=== PATIENT | male | born 1975 | race Caucasian/White ===

== ENCOUNTER 2017-02-15 01:45 | Inpatient (IN) | payer BC ==
[~2017-02-15] VITALS: Ht 167.6 cm; Wt 90.0 kg
[2017-02-15] MEDS ORDERED: OMEP-110 PO (01:55)
[2017-02-15] MEDS ORDERED: SERT25TA3 PO (01:55)
[2017-02-15] MEDS ORDERED: ALPR-475 PO (01:55)
[2017-02-15] MEDS ORDERED: LOSA25TA5 PO (01:55)
[2017-02-15] MEDS ORDERED: LORazepam 2 MG/ML, 1ML ONE (01:59)
[2017-02-15] MEDS ORDERED: HYDROmorphone 1 MG/ML, 1ML ONE (01:59)
[2017-02-15] MEDS ORDERED: LORazepam 2 MG/ML, 1ML IVPush ONE (02:00)
[2017-02-15] MEDS ORDERED: SODIUM CHLORIDE 0.9% 1,000ML IVBOLUS ONE (02:00)
[2017-02-15] MEDS ORDERED: SODIUM CHLORIDE FLUSH 10ML SYR IVF ONE (02:00)
[2017-02-15] MEDS ORDERED: MORPHINE SULFATE 4 MG/ML, 1ML IVPush PRN (02:00)
[2017-02-15] MEDS ORDERED: NITROGLYCERIN SINGLE TAB 0.4 MG SL ONE (02:02)
[2017-02-15] MEDS ORDERED: HEPARIN 1,000 UNITS/ML, 10ML ONE (02:07)
[2017-02-15] MEDS ORDERED: BIVALIRUDIN 250 MG ONE ×2 (02:07→03:07)
[2017-02-15] MEDS ORDERED: NITROGLYCERIN 5 MG/ML, 10ML ONE (02:07)
[2017-02-15] MEDS ORDERED: LIDOCAINE 2%, 20ML ONE ×2 (02:07→02:24)
[2017-02-15] MEDS ORDERED: FENTANYL PF 100 MCG/2ML ONE ×2 (02:07→02:37)
[2017-02-15] MEDS ORDERED: MIDAZOLAM 1 MG/ML, 5ML ONE ×2 (02:07→02:37)
[2017-02-15] MEDS ORDERED: TICAGRELOR 90 MG TABLET ONE (02:07)
[2017-02-15] MEDS ORDERED: VERAPAMIL 2.5 MG/ML, 2ML ONE (02:07)
[2017-02-15 02:20] LABS: HEMATOCRIT 53.4 % (39.2-51.8); HEMOGLOBIN 18.4 g/dL (13.7-18.0); WHITE BLOOD COUNT 13.4 x10^3/uL (3.4-10)
[2017-02-15] MEDS ORDERED: ONDANSETRON 2MG/ML, 2ML IVPush ONE (02:30)
[2017-02-15] MEDS ORDERED: HYDROmorphone 1 MG/ML, 1ML IVPush PRN (02:30)
[2017-02-15] MEDS ORDERED: NITROGLYCERIN SINGLE TAB 0.4 MG SL PRN (02:30)
[2017-02-15 02:33] LABS: BLOOD UREA NITROGEN 19 mg/dL (7-18)
[2017-02-15] MEDS ORDERED: DIPHENHYDRAMINE 50 MG/ML, 1ML ONE (02:33)
[2017-02-15 02:38] LABS: IS PT STATUS REG ER OR PRE ER? YES
[2017-02-15 02:40] LABS: ASPARTATE AMINO TRANSFERASE 1273 U/L (15-37)
[2017-02-15] MEDS ORDERED: EPTIFIBATIDE 20 MG/10 ML ONE (03:18)
[2017-02-15] MEDS ORDERED: EPTIFIBATIDE 0 ML IV ONE (03:18)
[2017-02-15] MEDS ORDERED: LABETALOL 5MG/ML, 20ML ONE (03:24)
[2017-02-15] MEDS ORDERED: ZOLPIDEM 5MG TABLET PO PRN (03:30)
[2017-02-15] MEDS: morphine SULFATE 10 MG/ML, 1ML IV PRN ×2 (04:11→17:58)
[2017-02-15] MEDS: ENOXAPARIN 80 MG/0.8 ML SQ SCH ×2 (04:12→16:02)
[2017-02-15] MEDS: METOPROLOL TARTRATE 25 MG TABLET PO SCH ×3 (04:12→19:27)
[2017-02-15] MEDS: SODIUM CHLORIDE 0.9% 1,000 ML IV SCH ×3 (04:13→19:29)
[2017-02-15 04:26] VITALS: BP 136/108
[2017-02-15] MEDS: ACETAMINOPHEN 500 MG TABLET PO PRN (05:24)
[2017-02-15] MEDS ORDERED: ONDANSETRON 2MG/ML, 2ML IVPush PRN (05:30)
[2017-02-15] MEDS: BIVALIRUDIN 250 MG in DEXTROSE 5% 50 ML IV SCH ×2 (05:41→06:01)
[2017-02-15 06:32] LABS: DAU SCREEN DISCLAIMER
[2017-02-15] MEDS ORDERED: METOPROLOL 1 MG/ML, 5ML IVPush ONE (07:00)
[2017-02-15] MEDS: TICAGRELOR 90 MG TABLET PO SCH ×2 (07:37→19:27)
[2017-02-15] MEDS: ASPIRIN 81 MG TABLET EC PO SCH (07:37)
[2017-02-15] MEDS: SERTRALINE 50MG TABLET PO SCH (07:37)
[2017-02-15] MEDS: LOSARTAN 50MG TABLET PO SCH ×2 (07:37→19:27)
[2017-02-15] MEDS ORDERED: POTASSIUM CHLORIDE 20 MEQ TAB.ER.PRT PO ONE ×2 (09:00→17:00)
[2017-02-15] MEDS ORDERED: CHLORDIAZEPOXIDE 25 MG CAPSULE PO SCH (09:30)
[2017-02-15] MEDS: LORazepam 2 MG/ML, 1ML IVPush PRN ×5 (09:49→21:51)
[2017-02-15] MEDS: THIAMINE 100 MG in SODIUM CHLORIDE 0.9% 50 ML IV SCH (09:58)
[2017-02-15] MEDS: MULTIVITAMIN 1 TABLET PO SCH (09:58)
[2017-02-15] MEDS ORDERED: FUROSEMIDE 20 MG/2 ML IV ONE (11:00)
[2017-02-15] MEDS: NITROGLYCERIN SINGLE TAB 0.4 MG SL PRN ×2 (12:26→12:43)
[2017-02-15] MEDS: NITROGLYCERIN OINT 2%, 1GM TP SCH ×2 (13:14→19:28)
[2017-02-15 13:29] LABS: IS PT STATUS REG ER OR PRE ER? NO
[2017-02-15] MEDS ORDERED: NICOTINE 21 MG/24 HR PATCH.TD24 ONE (15:57)
[2017-02-15] MEDS: CHLORDIAZEPOXIDE 25 MG CAPSULE PO SCH ×2 (15:59→19:27)
[2017-02-15] MEDS ORDERED: DIAZEPAM 5 MG/ML, 2ML IV SCH (18:00)
[2017-02-15 18:57] LABS: IS PT STATUS REG ER OR PRE ER? NO
[2017-02-15] MEDS: ATORVASTATIN 80 MG TABLET PO SCH (19:29)
[2017-02-15] MEDS: DIAZEPAM 5 MG/ML, 10ML VIAL IV SCH ×2 (19:30→23:00)
[2017-02-15] MEDS ORDERED: CHLORDIAZEPOXIDE 10 MG CAPSULE PO PRN (22:30)
[2017-02-15] MEDS ORDERED: LORazepam 2 MG/ML, 1ML IV PRN ×2 (22:30)
[2017-02-15] MEDS ORDERED: CHLORDIAZEPOXIDE 25 MG CAPSULE PO PRN ×3 (22:30)
[2017-02-15] MEDS: LORazepam 2 MG/ML, 1ML IV PRN ×3 (22:34→23:54)
[2017-02-15] MEDS: FOLIC ACID 1 MG TABLET PO SCH (23:06)
[2017-02-15] MEDS: POTASSIUM CHLORIDE 20 MEQ, MAGNESIUM SULFATE 2 GM, THIAMINE 100 MG, MVI ADULT 10 ML in ... IV SCH (23:07)
[2017-02-16] MEDS: LORazepam 2 MG/ML, 1ML IV PRN ×3 (00:53→02:10)
[2017-02-16 01:06] LABS: IS PT STATUS REG ER OR PRE ER? NO
[2017-02-16] MEDS: NITROGLYCERIN OINT 2%, 1GM TP SCH ×4 (01:29→19:21)
[2017-02-16] MEDS ORDERED: HALOPERIDOL 5 MG/ML ONE (02:37)
[2017-02-16] MEDS ORDERED: HALOPERIDOL 5 MG/ML IV ONE ×2 (03:00→03:30)
[2017-02-16] MEDS: DIAZEPAM 5 MG/ML, 10ML VIAL IV SCH ×2 (03:00→07:00)
[2017-02-16] MEDS: METOPROLOL TARTRATE 25 MG TABLET PO SCH (03:13)
[2017-02-16] MEDS: ENOXAPARIN 80 MG/0.8 ML SQ SCH ×2 (03:14→15:54)
[2017-02-16 03:19] VITALS: BP 126/88
[2017-02-16] MEDS: SODIUM CHLORIDE 0.9% 1,000 ML IV SCH ×3 (03:29→19:31)
[2017-02-16] MEDS ORDERED: DEXMEDETOMIDINE 200 MCG in SODIUM CHLORIDE 0.9% 48 ML IV PRN (05:00)
[2017-02-16 06:10] LABS: WHITE BLOOD COUNT 19.2 x10^3/uL (3.4-10)
[2017-02-16 06:34] LABS: BLOOD UREA NITROGEN 17 mg/dL (7-18)
[2017-02-16 06:37] LABS: ASPARTATE AMINO TRANSFERASE 823 U/L (15-37)
[2017-02-16 06:50] LABS: DIFF TOTAL CELLS COUNTED 100 CELL DIFF
[2017-02-16 06:51] LABS: VERIFY COUNTS? YES
[2017-02-16 06:52] LABS: ANISOCYTOSIS 1+
[2017-02-16 06:55] LABS: IS PT STATUS REG ER OR PRE ER? NO
[2017-02-16] MEDS: FOLIC ACID 1 MG TABLET PO SCH (07:27)
[2017-02-16] MEDS: MULTIVITAMIN 1 TABLET PO SCH (07:27)
[2017-02-16] MEDS: CHLORDIAZEPOXIDE 25 MG CAPSULE PO SCH ×3 (07:27→20:43)
[2017-02-16] MEDS: SERTRALINE 50MG TABLET PO SCH (07:27)
[2017-02-16] MEDS: ASPIRIN 81 MG TABLET EC PO SCH (07:27)
[2017-02-16] MEDS: LOSARTAN 50MG TABLET PO SCH ×2 (07:27→20:46)
[2017-02-16] MEDS: TICAGRELOR 90 MG TABLET PO SCH ×2 (07:27→20:42)
[2017-02-16] MEDS: NICOTINE 21 MG/24 HR PATCH.TD24 TD SCH (07:28)
[2017-02-16] MEDS: DIAZEPAM 5 MG/ML, 2ML IV SCH ×4 (07:33→23:41)
[2017-02-16] MEDS: ZIPRASIDONE 20 MG INJ IM PRN ×3 (08:04→17:37)
[2017-02-16] MEDS: THIAMINE 100 MG in SODIUM CHLORIDE 0.9% 50 ML IV SCH (10:02)
[2017-02-16] MEDS ORDERED: DIAZEPAM 5 MG/ML, 2ML IV SCH (11:00)
[2017-02-16] MEDS: METOPROLOL TARTRATE 50 MG TABLET PO SCH ×2 (12:50→20:42)
[2017-02-16 12:56] LABS: ABG COLLECTION SITE RIGHT RADIAL; COLLATERAL CIRCULATION TESTING NORMAL; FIO2 ROOM AIR %
[2017-02-16] MEDS ORDERED: ACETAMINOPHEN 325 MG TABLET ONE (19:26)
[2017-02-16] MEDS: ACETAMINOPHEN 500 MG TABLET PO PRN (19:29)
[2017-02-16] MEDS: ATORVASTATIN 80 MG TABLET PO SCH (20:41)
[2017-02-16] MEDS: POTASSIUM CHLORIDE 20 MEQ, MAGNESIUM SULFATE 2 GM, THIAMINE 100 MG, MVI ADULT 10 ML in ... IV SCH (23:33)
[2017-02-17] MEDS: NITROGLYCERIN OINT 2%, 1GM TP SCH ×2 (01:18→07:00)
[2017-02-17] MEDS: METOPROLOL TARTRATE 50 MG TABLET PO SCH ×3 (03:31→21:13)
[2017-02-17] MEDS: ENOXAPARIN 80 MG/0.8 ML SQ SCH (03:33)
[2017-02-17] MEDS: ZIPRASIDONE 20 MG INJ IM PRN (04:15)
[2017-02-17 04:38] LABS: HEMATOCRIT 37.1 % (39.2-51.8); HEMOGLOBIN 12.9 g/dL (13.7-18.0); WHITE BLOOD COUNT 12.7 x10^3/uL (3.4-10)
[2017-02-17 04:42] LABS: BLOOD UREA NITROGEN 17 mg/dL (7-18)
[2017-02-17 04:46] LABS: ASPARTATE AMINO TRANSFERASE 442 U/L (15-37)
[2017-02-17 05:00] VITALS: BP 110/37
[2017-02-17] MEDS: DIAZEPAM 5 MG/ML, 2ML IV SCH (05:59)
[2017-02-17] MEDS ORDERED: FUROSEMIDE 20 MG/2 ML IV ONE (08:30)
[2017-02-17] MEDS: TICAGRELOR 90 MG TABLET PO SCH ×2 (08:50→21:13)
[2017-02-17] MEDS: NICOTINE 21 MG/24 HR PATCH.TD24 TD SCH (08:50)
[2017-02-17] MEDS: ASPIRIN 81 MG TABLET EC PO SCH (08:50)
[2017-02-17] MEDS: MULTIVITAMIN 1 TABLET PO SCH (08:50)
[2017-02-17] MEDS: SERTRALINE 50MG TABLET PO SCH (08:50)
[2017-02-17] MEDS: CHLORDIAZEPOXIDE 25 MG CAPSULE PO SCH ×2 (08:50→16:14)
[2017-02-17] MEDS: FOLIC ACID 1 MG TABLET PO SCH (08:50)
[2017-02-17] MEDS: LOSARTAN 50MG TABLET PO SCH ×2 (08:57→21:00)
[2017-02-17] MEDS ORDERED: SODIUM PHOSPHATE 20 MMOL in SODIUM CHLORIDE 0.9% 500 ML IV ONE (09:00)
[2017-02-17] MEDS ORDERED: DIAZEPAM 5 MG/ML, 2ML IV PRN (09:30)
[2017-02-17] MEDS: THIAMINE 100 MG in SODIUM CHLORIDE 0.9% 50 ML IV SCH (09:36)
[2017-02-17 10:06] LABS: ANTITHROMBIN III ACTIVITY 64 % (75-135)
[2017-02-17 11:06] LABS: PROTEIN C ANTIGEN 78 % (60-150); PROTEIN C FUNCTIONAL 87 % (73-180)
[2017-02-17] MEDS: ENOXAPARIN 100 MG/ML SQ SCH (16:14)
[2017-02-17 19:03] VITALS: BP 116/83
[2017-02-17 19:09] LABS: ANA SCREEN POSITIVE (Negative); ANA TITER 1:40; RHEUMATOID FACTOR SCREEN NEGATIVE (NEGATIVE)
[2017-02-17] MEDS: ATORVASTATIN 80 MG TABLET PO SCH (21:13)
[2017-02-17] MEDS: DIAZEPAM 5 MG/ML, 10ML VIAL IV PRN (22:39)
[2017-02-18 00:20] VITALS: BP 99/72
[2017-02-18] MEDS: CHLORDIAZEPOXIDE 25 MG CAPSULE PO SCH ×4 (00:36→21:25)
[2017-02-18 04:48] VITALS: BP 100/70
[2017-02-18] MEDS: METOPROLOL TARTRATE 50 MG TABLET PO SCH ×3 (04:49→21:25)
[2017-02-18] MEDS: ENOXAPARIN 100 MG/ML SQ SCH (04:49)
[2017-02-18 06:00] LABS: ASPARTATE AMINO TRANSFERASE 269 U/L (15-37); BLOOD UREA NITROGEN 17 mg/dL (7-18)
[2017-02-18 07:40] VITALS: BP 92/66
[2017-02-18] MEDS: MULTIVITAMIN 1 TABLET PO SCH (08:08)
[2017-02-18] MEDS: ASPIRIN 81 MG TABLET EC PO SCH (08:09)
[2017-02-18] MEDS: NICOTINE 21 MG/24 HR PATCH.TD24 TD SCH (08:09)
[2017-02-18] MEDS: TICAGRELOR 90 MG TABLET PO SCH ×2 (08:09→21:25)
[2017-02-18] MEDS: SERTRALINE 50MG TABLET PO SCH (08:09)
[2017-02-18] MEDS: FOLIC ACID 1 MG TABLET PO SCH (08:09)
[2017-02-18] MEDS: LOSARTAN 50MG TABLET PO SCH ×2 (08:14→21:25)
[2017-02-18 10:40] LABS: HEMATOCRIT 35.6 % (39.2-51.8); HEMOGLOBIN 12.4 g/dL (13.7-18.0); WHITE BLOOD COUNT 12.4 x10^3/uL (3.4-10)
[2017-02-18] MEDS: THIAMINE 100 MG in SODIUM CHLORIDE 0.9% 50 ML IV SCH (10:56)
[2017-02-18] MEDS: PANTOPROZOLE 40MG TABLET PO SCH ×2 (10:56→21:25)
[2017-02-18] MEDS: DIAZEPAM 5 MG/ML, 10ML VIAL IV PRN ×2 (11:04→16:35)
[2017-02-18 11:14] LABS: C. DIFF TOXIN A & B Negative
[2017-02-18 11:16] LABS: 027-NAP1-BI Presumpt Negative (Negative)
[2017-02-18 12:06] LABS: PROTEIN S FREE 218 % (57-157); PROTEIN S FUNCTIONAL 191 % (63-140); PROTEIN S TOTAL 114 % (60-150)
[2017-02-18 13:23] VITALS: BP 97/68
[2017-02-18 14:07] LABS: BETA-2 GLYCOPROTEIN I IGA <9 (0-25)
[2017-02-18] MEDS: POTASSIUM CHLORIDE 20 MEQ TAB.ER.PRT PO SCH (16:35)
[2017-02-18 20:15] VITALS: BP 115/70
[2017-02-18 21:19] LABS: OCCBLD OBC PASS
[2017-02-18 21:24] VITALS: BP 104/68
[2017-02-18] MEDS: ATORVASTATIN 80 MG TABLET PO SCH (21:25)
[2017-02-19 02:41] VITALS: BP 98/63
[2017-02-19 05:22] VITALS: BP 95/61
[2017-02-19] MEDS: METOPROLOL TARTRATE 50 MG TABLET PO SCH (05:23)
[2017-02-19 06:04] LABS: HEMATOCRIT 30.7 % (39.2-51.8); WHITE BLOOD COUNT 12.7 x10^3/uL (3.4-10)
[2017-02-19 06:28] LABS: ASPARTATE AMINO TRANSFERASE 178 U/L (15-37); BLOOD UREA NITROGEN 15 mg/dL (7-18)
[2017-02-19] MEDS: FOLIC ACID 1 MG TABLET PO SCH (08:48)
[2017-02-19] MEDS: LOSARTAN 50MG TABLET PO SCH (08:48)
[2017-02-19] MEDS: CHLORDIAZEPOXIDE 25 MG CAPSULE PO SCH (08:48)
[2017-02-19] MEDS: SERTRALINE 50MG TABLET PO SCH (08:48)
[2017-02-19] MEDS: TICAGRELOR 90 MG TABLET PO SCH (08:48)
[2017-02-19] MEDS: ASPIRIN 81 MG TABLET EC PO SCH (08:48)
[2017-02-19] MEDS: MULTIVITAMIN 1 TABLET PO SCH (08:48)
[2017-02-19] MEDS: POTASSIUM CHLORIDE 20 MEQ TAB.ER.PRT PO SCH (08:49)
[2017-02-19] MEDS: PANTOPROZOLE 40MG TABLET PO SCH (08:49)
[2017-02-19] MEDS: NICOTINE 21 MG/24 HR PATCH.TD24 TD SCH (08:49)
[2017-02-19] MEDS ORDERED: NICO-486 TD (09:57)
[2017-02-19] MEDS ORDERED: THIA100T6 PO (09:57)
[2017-02-19] MEDS ORDERED: METO50TA82 PO (09:57)
[2017-02-19] MEDS ORDERED: ATOR-2 PO (09:57)
[2017-02-19] MEDS ORDERED: CHLO25CA9 PO (09:57)
[2017-02-19] MEDS ORDERED: FOLI-17 PO (09:57)
[2017-02-19] MEDS ORDERED: MULT1TAB60 PO (09:57)
[2017-02-19] MEDS ORDERED: TICA90TA PO (09:57)
[2017-02-19] MEDS ORDERED: ASPI-621 PO (09:57)
[2017-02-19 10:06] LABS: DILUTE PROTHROMBIN TIME (DPT) 51.6 sec (0.0-55.0); DILUTE RUSSELL'S VIPER VENOM 53.4 sec (0.0-47.0); LUPUS REFLEX INTERPRETATION Comment: (.); PTT-LA 53.6 sec (0.0-51.9); PTT-LA MIX 51.3 sec (0.0-48.9)
[2017-02-19] MEDS: DIAZEPAM 5 MG/ML, 10ML VIAL IV PRN (10:41)
[2017-02-19] MEDS: THIAMINE 100 MG in SODIUM CHLORIDE 0.9% 50 ML IV SCH (10:41)
[2017-02-19] MEDS ORDERED: POTASSIUM CHLORIDE 20 MEQ TAB.ER.PRT PO SCH (17:00)
[2017-02-19] MEDS ORDERED: METOPROLOL TARTRATE 50 MG TABLET PO SCH (21:00)
[2017-02-19] MEDS ORDERED: LOSARTAN 25MG TABLET PO SCH (21:00)
== END 2017-02-19 13:02 | disposition home or self-care (01) | DRG 246 ==
LOC: ED 02:17 → EDIP 02:20 → CCU 03:37 → 5SO 02-17 10:57 → DCLOUNGE 02-19 12:46
PROVIDERS: ADMIT Internal Medicine Cardiovascular Disease; ATTEND Family Medicine
PROC: 027034Z Dilation of Coronary Artery, One Artery with Drug-eluting Intraluminal Device, Percutaneous Approach (ICD-10-PCS; principal; 2017-02-15)
PROC: 02C03ZZ Extirpation of Matter from Coronary Artery, One Artery, Percutaneous Approach (ICD-10-PCS; 2017-02-15)
DX: I21.29 ST elevation (STEMI) myocardial infarction involving other sites (principal); G93.41 Metabolic encephalopathy; N17.0 Acute kidney failure with tubular necrosis; I50.41 Acute combined systolic (congestive) and diastolic (congestive) heart failure; F10.231 Alcohol dependence with withdrawal delirium; D68.59 Other primary thrombophilia; I13.0 Hypertensive heart and chronic kidney disease with heart failure and stage 1 through stage 4 chronic kidney disease, or unspecified chronic kidney disease; K92.2 Gastrointestinal hemorrhage, unspecified; D72.829 Elevated white blood cell count, unspecified; E87.6 Hypokalemia; F12.90 Cannabis use, unspecified, uncomplicated; F17.210 Nicotine dependence, cigarettes, uncomplicated; F32.9 Major depressive disorder, single episode, unspecified; F41.1 Generalized anxiety disorder; I07.1 Rheumatic tricuspid insufficiency; I25.10 Atherosclerotic heart disease of native coronary artery without angina pectoris; J44.9 Chronic obstructive pulmonary disease, unspecified; K21.9 Gastro-esophageal reflux disease without esophagitis; K70.10 Alcoholic hepatitis without ascites; N18.9 Chronic kidney disease, unspecified; R04.0 Epistaxis; Z79.82 Long term (current) use of aspirin; Z82.3 Family history of stroke; Z82.49 Family history of ischemic heart disease and other diseases of the circulatory system; Z83.3 Family history of diabetes mellitus
CPT/HCPCS: 36415; 36600; 71010; 80047; 80053; 80061; 80307; 81241; 81270; 82272; 82803; 83036; 83090; 83690; 83735; 84100; 84484; 85025; 85300; 85301; 85302; 85303; 85305; 85306; 85610; 85613; 85651; 85670; 85705; 85730; 85732; 86038; 86039; 86146; 86147; 86430; 87081; 87324; 87493; 93005; 93454; 96374; 96375; 99156; 99157; C1760; C1769; C1894; C8929; J0583; J1170; J1644; J1650; J2250; J2405; J3010; J3360; J3411; J3475; J3480; J3486; J3490; C1725; C1757; C1874; C1887; G0479; J1200; J1327; J1630; J1940; J2060; J2270; J7030; J7040; Q9967

== ENCOUNTER 2017-02-15 01:45 | Emergency (ER) | payer OTHER ==
[2017-02-15] MEDS ORDERED: LOSA25TA5 PO (01:55)
[2017-02-15] MEDS ORDERED: OMEP-110 PO (01:55)
[2017-02-15] MEDS ORDERED: SERT25TA3 PO (01:55)
[2017-02-15] MEDS ORDERED: ONDANSETRON 2MG/ML, 2ML ONE (01:55)
[2017-02-15] MEDS ORDERED: ALPR-475 PO (01:55)
== END 2017-02-15 02:26 ==
LOC: ED 01:49
DX: Z53.21 Procedure and treatment not carried out due to patient leaving prior to being seen by health care provider (principal)

== ENCOUNTER 2018-03-02 16:35 | Emergency (ER) | payer BC ==
[~2018-03-02] VITALS: Ht 170.2 cm; Wt 93.1 kg
[~2018-03-02 16:35] MED LIST: ALPR-475 PO; ASPI81TA45 PO; ATOR-2 PO; CHLO25CA9 PO; FOLI-17 PO; LOSA25TA6 PO; METO50TA82 PO; MULT1TAB60 PO; NICO-486 TD; OMEP-110 PO; SERT25TA3 PO; THIA100T67 PO; TICA90TA PO
[2018-03-02] MEDS ORDERED: SODIUM CHLORIDE 0.9% 1,000ML IVBOLUS ONE (17:00)
[2018-03-02] MEDS ORDERED: PROMETHAZINE 25 MG/ML, 1ML IM ONE (17:00)
[2018-03-02] MEDS ORDERED: PANTOPRAZOLE 40 MG IV IVP ONE (17:00)
[2018-03-02] MEDS ORDERED: ONDANSETRON 2MG/ML, 2ML IVPush ONE (17:00)
[2018-03-02 17:17] LABS: ALANINE AMINOTRANSFERASE 51 U/L (12-78); ALBUMIN 4.5 g/dL (3.4-5.0); ANION GAP 15 mmol/L (5-15); CALCIUM 9.6 mg/dL (8.5-10.1); CHLORIDE 109 mmol/L (98-107); CREATININE 1.11 mg/dL (0.7-1.3)
[2018-03-02] MEDS ORDERED: ONDANSETRON 2MG/ML, 2ML ONE (17:17)
[2018-03-02] MEDS ORDERED: MORPHINE SULFATE 4 MG/ML, 1ML ONE ×2 (17:18→19:20)
[2018-03-02] MEDS ORDERED: PANTOPRAZOLE 40 MG IV ONE (17:18)
[2018-03-02 17:21] LABS: BASOPHILS # (AUTO) 0.01 x10^3/uL (0-0.1); BASOPHILS % (AUTO) 0 % (0-1); EOSINOPHILS # (AUTO) 0.02 x10^3/uL (0-0.4); EOSINOPHILS % (AUTO) 0 % (1-7); LYMPHOCYTES # (AUTO) 1.17 x10^3/uL (1-3.4); LYMPHOCYTES % (AUTO) 7 % (22-44); MD NO; MEAN CORPUSCULAR HEMOGLOBIN 31.8 pg (27.5-34.5); MEAN CORPUSCULAR HGB CONC 34.4 g/dL (33.2-36.2); MEAN CORPUSCULAR VOLUME 92.4 fL (81-97); MEAN PLATELET VOLUME 9.1 fL (7.4-10.4); MONOCYTES # (AUTO) 0.63 x10^3/uL (0.2-0.8); MONOCYTES % (AUTO) 4 % (2-9); NEUTROPHILS # (AUTO) 14.21 x10^3/uL (1.8-6.8); NEUTROPHILS % (AUTO) 89 % (42-75); PLATELET COUNT 235 x10^3/uL (130-400); RED BLOOD COUNT 5.44 x10^6/uL (4.38-5.82); RED CELL DISTRIBUTION WIDTH 14.8 % (9.4-14.8)
[2018-03-02 17:22] LABS: ALKALINE PHOSPHATASE 92 U/L (45-117); BILIRUBIN,TOTAL 1.2 mg/dL (0.2-1.0); TOTAL PROTEIN 8.9 g/dL (6.4-8.2); TROPONIN I < 0.015 ng/mL (0.000-0.045)
[2018-03-02] MEDS: MORPHINE SULFATE 4 MG/ML, 1ML IVPush PRN ×2 (17:24→19:21)
[2018-03-02 17:29] LABS: INTERNATIONAL NORMALIZED RATIO 1.04 (0.93-1.1)
[2018-03-02] MEDS ORDERED: OMNIPAQUE 350 MG/ML, 100ML BOTTLE ONE (19:16)
[2018-03-02 20:02] VITALS: BP 143/102
== END 2018-03-02 20:38 | disposition home or self-care (01) ==
LOC: ED 18:22
DX: R10.2 Pelvic and perineal pain (principal); R11.2 Nausea with vomiting, unspecified; R07.89 Other chest pain; R06.00 Dyspnea, unspecified; I10 Essential (primary) hypertension; I25.2 Old myocardial infarction; K21.9 Gastro-esophageal reflux disease without esophagitis; F41.1 Generalized anxiety disorder; J44.9 Chronic obstructive pulmonary disease, unspecified; F17.200 Nicotine dependence, unspecified, uncomplicated
CPT/HCPCS: 36415; 71045; 74177; 80053; 80307; 83690; 83880; 84484; 85025; 85610; 85730; 93005; 96361; 96374; 96375; 96376; 99284; C9113; J2405; J7030; Q9967